=== PATIENT | female | born 1995 | race Two or more races ===

== ENCOUNTER 2019-12-06 21:29 | Observation (INO) | payer OTHER ==
[~2019-12-06] VITALS: Ht 170.2 cm; Wt 73.9 kg
== END 2019-12-06 21:59 | disposition home or self-care (01) ==
LOC: SPU 21:29
PROVIDERS: ADMIT Specialist; ATTEND Specialist
DX: O62.9 Abnormality of forces of labor, unspecified (principal); Z3A.38 38 weeks gestation of pregnancy
CPT/HCPCS: G0378